=== PATIENT | female | born 1990 | race Caucasian/White ===

== ENCOUNTER 2016-12-03 10:44 | Emergency (ER) | payer MEDICAID ==
[2016-12-03 11:15] VITALS: TEMP 98.2
--- NOTE | 2016-12-03 11:31 | UCPHY ---
H & P Time Seen by Provider: 12/03/16 10:57 Patient Type: Established HPI/ROS: Patient complains of several weeks of constipation states she was seen in her primary care's office who recommended that she come to urgent Care and/or the emergency department for further evaluation she also complains of frequent urination. Review of systems General no fever no chills no weakness HEENT no eye pain no eye discharge. No eye redness, no sore throat Respiratory no cough, no shortness of breath Cardiac no chest pain, no peripheral edema GI positive abdominal pain, no diarrhea, positive constipation, no nausea, no vomiting no flank pain, no hematuria, positive dysuria Musculoskeletal no myalgias, no joint pain Heme no easy bruising, no easy bleeding Endo no polyuria, no polydipsia Skin no rashes, no pruritus Neuro no syncope, no dizziness, no headaches Psych is no suicidal ideation, no homicidal ideation Past Medical/Surgical History: Attention deficit hyperactivity disorder Depression Anxiety Chronic back pain Social History: Denies alcohol or drug use Smoking Status: Current every day smoker Physical Exam: 26-year-old female alert and oriented no acute distress nontoxic appearance afebrile HEENT atraumatic normocephalic, extraocular muscles intact, anicteric Oropharynx negative for erythema negative exudate, tolerating her own secretions Neck supple no meningismus Lungs clear to auscultation bilaterally Heart regular rate and rhythm without murmur rub or gallop Abdomen nondistended normoactive bowel sounds soft mild periumbilical tenderness , no guarding no rebound no masses Back no CVA tenderness, no step-offs, no spinal tenderness Extremities no cyanosis clubbing or edema Neuro alert and oriented, no focal deficits Constitutional: Initial Vital Signs Temperature (C) 36.8 C 12/03/16 11:10 Heart Rate 112 H 12/03/16 11:10 Respiratory Rate 20 12/03/16 11:10 Blood Pressure 123/81 H 12/03/16 11:10 O2 Sat (%) 96 12/03/16 11:10 O2 Delivery Mode Room Air Allergies/Adverse Reactions: No Known Allergies Allergy (Verified 12/03/16 11:09) Home Medications: Medication Instructions Recorded Adderall 10 mg Tablet 12/03/16 Hydroxyzine HCl 12/03/16 Lamotrigine 12/03/16 Linaclotide [Linzess] 145 mcg PO DAILY #30 capsule 12/03/16 Lyrica 12/03/16 Medical Decision Making - Diagnostics Imaging: CT abdomen negative for appendicitis, positive constipation ascending colon ED Course/Re-evaluation: Patient seen and evaluated for constipation abdominal pain urinary frequency of several weeks duration worse over the last 5 days. Urinalysis negative Labs within normal limits including CBC CMP lipase Differential diagnosis considered Bowel obstruction, appendicitis, diverticulitis, constipation, pyelonephritis, UTI Labs do not support UTI CT scan negative for bowel obstruction appy or diverticulitis consistent with constipation Impression Constipation Plan Follow up with primary care physician Given Rx for 1 month supply constipation medicines - Data Points Laboratory Results: Laboratory Results 12/03/16 11:45 12/03/16 11:45 Medications Given: Discontinued Medications Sodium Chloride (Ns) 1,000 mls @ 0 mls/hr IV ONCE ONE PRN Reason: Wide Open Stop: 12/03/16 11:33 Last Admin: 12/03/16 11:45 Dose: 1,000 mls Departure - Departure Disposition: Home, Routine, Self-Care Clinical Impression: Constipation Condition: Good Instructions: Constipation (ED) Referrals: Jesusita Cyr PA [Primary Care Provider] - As per Instructions Prescriptions: Linaclotide [Linzess] 145 mcg PO DAILY #30 capsule - PQRS PQRS Measurement: na
[2016-12-03] MEDS ORDERED: NS 1,000 ML IV ONE (11:32)
[2016-12-03 11:36] LABS: COLOR YELLOW; LEUKOCYTE ESTERASE,URINE NEGATIVE (NEGATIVE); NITRITE,URINE NEGATIVE (NEGATIVE)
[2016-12-03 12:02] LABS: % IMMATURE GRANULYOCYTES 0.3 % (0.0-1.1); ABSOLUTE IMMATURE GRANULOCYTES 0.02 10^3/uL (0.00-0.10); ADD DIFF? NO; ADD MORPH? NO; ADD SCAN? NO; ATYPICAL LYMPHOCYTE FLAG 10 (0-99); FRAGMENT RBC FLAG 0 (0-99); HEMATOCRIT 40.6 % (38.0-47.0); HEMOGLOBIN 14.3 g/dL (12.6-16.3); LEFT SHIFT FLG 0 (0-99); LIPEMIA HEMOLYSIS FLAG 90 (0-99); MEAN CELL HEMOGLOBIN 30.7 pg (27.9-34.1); MEAN CELL HEMOGLOBIN CONCENTR. 35.2 g/dL (32.4-36.7); MEAN CELL VOLUME 87.1 fL (81.5-99.8); MEAN PLATELET VOLUME 11.1 fL (8.7-11.7); PLATELET CLUMPS FLAG 0 (0-99); PLATELET COUNT 321 10^3/uL (150-400); RED BLOOD CELL COUNT 4.66 10^6/uL (4.18-5.33); RED CELL DISTRIBUTION WIDTH 11.9 % (11.5-15.2)
[2016-12-03 12:12] LABS: INR 1.16 (0.83-1.16); PROTIME(PATIENT) 14.5 SEC (12.0-15.0)
[2016-12-03 12:13] LABS: APTT 29.1 SEC (23.0-38.0)
[2016-12-03 12:14] LABS: ALANINE AMINOTRANSFERASE 45 IU/L (9-52); ALBUMIN 3.5 g/dL (3.5-5.0); ALKALINE PHOSPHATASE 68 IU/L (38-126); ANION GAP 12 mEq/L (8-16); ASPARTATE AMINOTRANSFERASE 20 IU/L (14-46); BILIRUBIN,TOTAL 0.7 mg/dL (0.1-1.4); CALCIUM 8.9 mg/dL (8.5-10.4); CARBON DIOXIDE 21 mEq/l (22-31); CHLORIDE 106 mEq/L (97-110); CREATININE 0.5 mg/dL (0.6-1.0); GLOMERULAR FILTRATION RATE > 60; GLUCOSE 96 mg/dL (70-100); POTASSIUM 4.2 mEq/L (3.5-5.2); SODIUM 139 mEq/L (134-144); TOTAL PROTEIN 6.3 g/dL (6.3-8.2)
[2016-12-03] MEDS ORDERED: IOPAMIDOL (ISOVUE-300) 100 ML BTL IV ONE (12:19)
[2016-12-03 12:50] VITALS: BP 107/49; PULSE 82; RESP 18; O2SAT 97
== END 2016-12-03 13:48 | disposition home or self-care (01) ==
LOC: CED 10:44
DX: K59.00 Constipation, unspecified (principal); M54.9 Dorsalgia, unspecified; F17.210 Nicotine dependence, cigarettes, uncomplicated; F90.1 Attention-deficit hyperactivity disorder, predominantly hyperactive type; F48.9 Nonpsychotic mental disorder, unspecified
CPT/HCPCS: 74177-PO; 80053-PO; 81003-PO; 83605-PO; 83690-PO; 85025-PO; 85378-PO; 85610-PO; 85730-PO; 96360-PO; 99215-PO; G0463-PO; Q9967

== ENCOUNTER 2017-02-11 15:23 | Emergency (ER) | payer MEDICAID ==
--- NOTE | 2017-02-11 15:57 | EDPHY ---
H & P Time Seen by Provider: 02/11/17 15:42 HPI/ROS: Patient complains of a rash in her chest associated with itching present for 1 week and increasing in size. She describes fairly intense itching associated with this. She wonders if the rash may be related to her lamotrigine in that she started 2 months ago. She did contact her psychiatrist regarding this and they suggest she taper off of it and she has started to taper off of it. This is her 1st visit to a clinician to see the rash. She reports that it is only located on her chest. She has no other associated symptoms except mild fatigue that she thinks may be due to her medications. This patient is accompanied by her mother today. ROS: No skin rash elsewhere or intraoral lesions. No fevers or chills. No URI symptoms. No wheezing or shortness of breath. 7 point ROS is otherwise negative. Past Medical/Surgical History: Psychiatric history. Social History: She is a mother of 4 children ranging in age from 2 to 9 years old Smoking Status: Current every day smoker Physical Exam: Physical Exam Vital signs are normal except for pulse of 110 General: No acute distress HEENT: Intraoral exam: No lesions. No dysphonia. No pharyngeal erythema. Eyes: Pupils equal and react to light. Extraocular motions are intact. Lungs: Clear to auscultation bilaterally. No respiratory distress. Cardiac: Regular rate and rhythm with no murmur gallop or rub. Brisk capillary refill is intact throughout. Skin: Patient has a 5 x 6 cm area of erythema on her chest wall between her 2 breasts without associated warmth to touch. There is no satellite lesions. There is no petechia or purpura. No fluctuance. There is very slight superficial desquamation at the border of this area. There is no rash underneath her breasts or anywhere else on her body. Neuro: Alert and oriented x3 with no sensorimotor deficits. Initial differential diagnosis: Contact dermatitis, drug rash/allergy, doubt tinea Constitutional: Initial Vital Signs Temperature (C) 36.6 C 02/11/17 15:24 Heart Rate 110 H 02/11/17 15:24 Respiratory Rate 16 02/11/17 15:24 Blood Pressure 125/86 H 02/11/17 15:24 O2 Sat (%) 95 02/11/17 15:24 O2 Delivery Mode Room Air Allergies/Adverse Reactions: No Known Allergies Allergy (Verified 02/11/17 15:31) Home Medications: Medication Instructions Recorded Adderall 10 mg Tablet 12/03/16 Hydroxyzine HCl 12/03/16 Lamotrigine 12/03/16 Lyrica 12/03/16 Hydrocortisone 0.2% Valerate 1 frieda TP BID #15 g 02/11/17 [Westcort 0.2% Cream (*)] hydrOXYzine HCL [Hydroxyzine HCl] 50 - 100 mg PO QID PRN #30 tablet 02/11/17 MDM/Departure - [facility] ED Course/Re-evaluation: Discussion: This patient may have a drug rash. The morphology of the rashes but atypical notes isolated to 1 spot in her body but is increasing in size. I did entertain the possibility atopic dermatitis from metallic part of a bra but she reports that she were sports bras with no metallic contacted that area. I will place her on steroid cream-Westcort cream 0.2% and Atarax with planned follow-up with primary or doctor of optometry if not improving and agree with plan to taper off lamotrigine and consult with her psychiatrist - Depart Disposition: Home, Routine, Self-Care Clinical Impression: Allergic dermatitis Condition: Good Instructions: Dermatitis (ED) Additional Instructions: Diagnosis: Allergic dermatitis to chest Plan: Westcort cream applied 2 times a day Atarax antihistamine for itching. Taper off of your lamotrigine. Try to accomplish this over 1 week. Discussed this with her psychiatrist. Follow up with doctor of optometry-Dr. Carlos or your primary physician if you're still not improving with treatment plan. Return for any significant worsening despite the treatment plan Prescriptions: Hydrocortisone 0.2% Valerate [Westcort 0.2% Cream (*)] 1 frieda TP BID #15 g hydrOXYzine HCL [Hydroxyzine HCl] 50 - 100 mg PO QID PRN #30 tablet PRN Reason: allergic dermatitis Referrals: Jesusita Cyr PA [Primary Care Provider] - As per Instructions JAXON CARLOS [Medical Doctor] - As per Instructions
[2017-02-11 16:09] VITALS: BP 144/78; PULSE 106; RESP 20; TEMP 97.7; O2SAT 96
== END 2017-02-11 16:09 | disposition home or self-care (01) ==
LOC: CED 15:23
DX: L23.9 Allergic contact dermatitis, unspecified cause (principal); F17.200 Nicotine dependence, unspecified, uncomplicated

== ENCOUNTER → 2017-02-27 | Outpatient (CLI) | payer MEDICAID ==
[~2017-02-27] MED LIST: GADOBUTROL 10 ML VIAL IVP ONE
== END ==
LOC: FIMAGING 15:33
PROVIDERS: ATTEND Physician Assistant
DX: M50.821 Other cervical disc disorders at C4-C5 level (principal); R59.9 Enlarged lymph nodes, unspecified
CPT/HCPCS: A9585

== ENCOUNTER → 2017-03-16 | Outpatient (CLI) | payer MEDICAID | LOC: CIMAGING 15:47 | PROVIDERS: ATTEND Physician Assistant | DX: E04.0 Nontoxic diffuse goiter (principal) | CPT/HCPCS: 76536-PO ==